=== PATIENT | male | born 2000 | race Caucasian/White ===

== ENCOUNTER 2019-06-29 17:25 | Emergency (ER) | payer OTHER ==
[~2019-06-29] VITALS: Ht 188 cm; Wt 74.1 kg
[2019-06-29 19:29] VITALS: BP 132/67
== END 2019-06-29 20:46 | disposition home or self-care (01) ==
LOC: ED 20:30
DX: G44.219 Episodic tension-type headache, not intractable (principal); R55 Syncope and collapse
CPT/HCPCS: 36415; 71046; 80048; 82040; 82962; 85025; 93005; 96374; 96375; 99284; J0780; J1200; J1885

== ENCOUNTER 2021-04-11 09:20 | Emergency (ER) | payer OTHER ==
[~2021-04-11] VITALS: Ht 190.5 cm; Wt 79.5 kg
--- NOTE | 2021-04-11 09:59 | NUR ---
PT C/O EPIGASTRIC ABDOMINAL PAIN ON THURSDAY THAT ROSOLVED ON SUNADY, AND HAS HAD BRB FROM RECTUM AND "DARK BLOOD IN STOOL. PT DENIES EATING ANTY BEETS OR OTHER ITEMS THAT COULD COLOR STOOL. HE DENIES ANY OTHER SYMTPOMS LIKE SOB OR FEELING LIGHTHEADED. HE HAS NOT BEEN TAKING NSAIDS OR DRINKING HEAVILY. CHART UP FOR .
--- NOTE | 2021-04-11 11:09 | NUR ---
RECEIVED SBAR REPORT FROM MATTHIEU. HAS SEEN PT, ORDERED LABS AT THIS TIME. VSS, KALEN, CALL LIGHT W/IN REACH.
[2021-04-11 11:55] LABS: BASOPHILS % (AUTO) 1 % (0-1); EOSINOPHILS % (AUTO) 2 % (1-7); LYMPHOCYTES % (AUTO) 31 % (22-44); MEAN CORPUSCULAR HEMOGLOBIN 32.1 pg (27.5-34.5); MEAN CORPUSCULAR HGB CONC 34.2 g/dL (33.2-36.2); MEAN PLATELET VOLUME 9.7 fL (7.4-10.4); MONOCYTES % (AUTO) 9 % (2-9); NEUTROPHILS % (AUTO) 57 % (42-75); PLATELET COUNT 175 x10^3/uL (130-400); RED BLOOD COUNT 5.28 x10^6/uL (4.38-5.82); RED CELL DISTRIBUTION WIDTH 12.6 % (9.4-14.8)
[2021-04-11 12:16] LABS: MD NO
[2021-04-11 13:03] VITALS: BP 111/51
== END 2021-04-11 13:05 | disposition home or self-care (01) ==
LOC: ED 09:59
DX: K92.1 Melena (principal); K92.2 Gastrointestinal hemorrhage, unspecified
CPT/HCPCS: 36415; 85025; 99283